=== PATIENT | female | born 1990 | race Caucasian/White ===

== ENCOUNTER → 2020-06-22 10:39 | Outpatient (BNVA) | payer MEDICAID, SELFPAY | PROVIDERS: Visit Provider Nurse Practitioner Women's Health | DX: O99.211 Obesity complicating pregnancy, first trimester (principal); Z3A.11 11 weeks gestation of pregnancy | CPT/HCPCS: 84315; 87077; 87086; 87184 ==

== ENCOUNTER → 2020-07-02 15:11 | Outpatient (BNVA) | payer MEDICAID, SELFPAY | PROVIDERS: Visit Provider Obstetrics & Gynecology | DX: Z34.01 Encounter for supervision of normal first pregnancy, first trimester (principal) | CPT/HCPCS: 80307; 83036; 84315; 85027; 86592; 86762; 86803; 86850; 86900; 87340; 87491; 87591; 87806; 88175 ==

== ENCOUNTER → 2020-07-25 10:15 | Outpatient (BNVA) | payer MEDICAID, SELFPAY | PROVIDERS: Visit Provider Nurse Practitioner Women's Health | DX: O99.891 Other specified diseases and conditions complicating pregnancy (principal); R82.71 Bacteriuria | CPT/HCPCS: 84315; 87086 ==

== ENCOUNTER → 2020-08-22 10:31 | Outpatient (BNVA) | payer MEDICAID, SELFPAY | PROVIDERS: Visit Provider Obstetrics & Gynecology | DX: Z36.89 Encounter for other specified antenatal screening (principal) | CPT/HCPCS: 76805 ==

== ENCOUNTER → 2020-09-17 11:54 | Outpatient (BNVA) | payer MEDICAID, SELFPAY | PROVIDERS: Visit Provider Obstetrics & Gynecology | DX: Z34.80 Encounter for supervision of other normal pregnancy, unspecified trimester | CPT/HCPCS: 82950; 84315 ==

== ENCOUNTER → 2020-10-15 11:49 | Outpatient (BNVA) | payer MEDICAID, SELFPAY | PROVIDERS: Visit Provider Obstetrics & Gynecology | DX: Z34.02 Encounter for supervision of normal first pregnancy, second trimester (principal) | CPT/HCPCS: 84315; 85027 ==

== ENCOUNTER → 2020-12-10 08:54 | Outpatient (BNVA) | payer MEDICAID, SELFPAY | PROVIDERS: Visit Provider Obstetrics & Gynecology | DX: Z34.03 Encounter for supervision of normal first pregnancy, third trimester (principal) | CPT/HCPCS: 84315; 87081 ==

== ENCOUNTER 2020-12-21 10:56 | Outpatient (CLI) | payer MEDICAID, SELFPAY | END 2020-12-21 10:57 | disposition home or self-care (01) | LOC: LAB 01-11 03:43 | PROVIDERS: Visit Provider Obstetrics & Gynecology | DX: Z34.03 Encounter for supervision of normal first pregnancy, third trimester (principal) | CPT/HCPCS: 84315; 87086 ==

== ENCOUNTER 2020-12-24 19:28 | Inpatient (IN) | payer MEDICAID, SELFPAY ==
[2020-12-24] VITALS (21 sets, daily range): BP systolic 119–169; BP diastolic 63–87; PULSE 60–75; RESP 18; TEMP 36.3; BMI 42.8
[2020-12-24 20:03] LABS: Basophils % 0.4 %; Eosinophils # 0.1 10^3/uL (0.0-0.8); Eosinophils % 0.6 %; Hematocrit 35.7 % (37.0-47.0); Hemoglobin 11.8 g/dL (11.5-15.3); Lymphocytes # 1.2 10^3/uL (0.8-4.8); Lymphocytes % 14.8 %; Mean Corpuscular HGB Conc 33.1 g/dL (30.0-36.0); Mean Corpuscular Volume 93.7 fL (81-99); Monocytes # 0.6 10^3/uL (0.2-0.9); Monocytes % 7.1 %; Neutrophils # 6.26 10^3/uL (1.8-7.7); Neutrophils % 76.5 %; Nucleated Red Blood Cells % 0 %; Platelet Count 224 10^3/cmm (130-400); Red Blood Count 3.81 10^6/uL (4.1-5.3); Red Cell Distribution Width 12.9 % (12.1-15.1); White Blood Count 8.2 10^3/uL (4.0-10.0)
[2020-12-24] MEDS: dextrose 5%-sod chloride 0.9% 1,000 ML 999 ML IV (20:07)
[2020-12-24] MEDS: dextrose 5%-lactated ringers 1,000 ML 125 ML IV (20:41)
[2020-12-24] MEDS: oxytocin 30 UNIT/500 ML BAG IV (21:20)
[2020-12-25] VITALS (90 sets, daily range): BP systolic 94–197; BP diastolic 51–110; PULSE 57–90; RESP 16–17; TEMP 36.2–37.2; O2SAT 93–99
[2020-12-25] MEDS: lactated ringers 1,000 ML 999 ML IV ×2 (01:23→12:57)
--- NOTE | 2020-12-25 02:30 | ANES.PREANE2 ---
Pre-Anesthetic Assessment Pre-Anesthetic Assessment: Height/Weight: Height 1.6 m Weight 109.769 kg Temp Pulse Resp BP Pulse Ox 97.3 F L 84 18 145/74 99 12/24/20 20:15 12/25/20 02:46 12/24/20 19:48 12/25/20 02:46 12/25/20 02:46 Preop Diagnosis: IUP Proposed Procedure: labor epidural Was Beta Melania taken within 24 hours: N/A Was Clonidine taken within 24 hours: N/A Social: Social History: No alcohol and No tobacco Exam: Pre-Anes Outpt Exam: alert, oriented x 3, clear to auscultation bilaterally and regular rate & rhythm Airway: Submandibular: WNL Cervical ROM: WNL MP: 2 History/ROS: No significant history except as noted Pulmonary: Pulmonary: Asthma CV/HEM: CV/HEM: None reported : : None reported Hepatic: Hepatic: None reported GI: GI: None reported Metabolic: Metabolic: Morbid obesity Musc/skel: Musc/skel: None reported Neuropsych: Neuropsych: None reported Anesthetic Plan: ASA status: 2 Anesthesia: Anesthesia Evaluation Risk of > 500 ml blood loss (7ml/kg in children): No Meds/Allergies Current Medications: Current Medications Generic Name Dose Route Start Last Admin Trade Name Freq PRN Reason Stop Dose Admin Dextrose/Lactated Ringer's 1,000 mls @ 125 m ls/hr 12/24/20 20:00 12/24/20 20:41 Dextrose 5%-Lact ated Ringers IV 125 mls/hr .Q8H MARIO Administration Oxytocin 30 unit in 500 ml s @ 1 mls/hr 12/24/20 21:15 12/24/20 21:35 Pitocin IV 2 milliunit/min .Q24H MARIO 2 mls/hr Titration Protocol 1 MILLIUNIT/MIN Lactated Ringer's 1,000 mls @ 999 m ls/hr 12/25/20 01:16 12/25/20 01:23 Lactated Ringers IV 999 mls/hr .Q1H1M PRN Administration See label comment s PFSH Anesthesia PFSH: Medical History Asthma No pertinent past medical history neghx: htn,dm,thyroid,dvt/pe,herpes ---denies partner with herpes Surgical History No pertinent past surgical history Family History Denies family history of Colon cancer Ovarian cancer Diabetes Heart disease Breast cancer Hypertension Uterine cancer Thyroid disease Stroke Social History Additional social history: - Tobacco use: Never Alcohol use: Socially prior to Drug use: denies Female Reproductive History: : 1 Data Anesthesia CBC & Chem 7: 12/24/20 14:44 Other Labs: Laboratory Results - last 48 hr 12/24/20 14:44 WBC 8.2 RBC 3.81 L Hgb 11.8 Hct 35.7 L MCV 93.7 MCH 31.0 MCHC 33.1 RDW 12.9 Plt Count 224 MPV 11.0 H Neut % (Auto) 76.5 Lymph % (Auto) 14.8 [place] % (Auto) 7.1 Eos % (Auto) 0.6 Baso % (Auto) 0.4 Neut # (Auto) 6.26 Lymph # (Auto) 1.2 [place] # (Auto) 0.6 Eos # (Auto) 0.1 Baso # (Auto) 0.0 Nucleated RBC % (auto) 0 Nucleated RBCs # 0.0 Cardiac Studies: No Data to Display
--- NOTE | 2020-12-25 02:54 | ANES.PROC ---
Anesthesia Procedures Procedure/Date: 12/25/20 Epidural: Time Out Performed: Yes Consents Signed: Procedure Consent Consent: requested by attending/covering physician Lumbar Level: L3-L4 Epidural position: sitting Epidural procedure: sterile prep of area, 1% lidocaine to numb the area, 18 g needle, negative for paresthesia passed, neg for paresthesia, test dose given, 1.5% xylocaine 1:200k epi (5ml), placed PCEA, no systemic response, sterile dressing applied, L.U.D. no apparent complications and 0.2% Ropiavacaine @ mls/hr (13)
--- NOTE | 2020-12-25 04:55 | ANES.PREANE2 ---
Pre-Anesthetic Assessment Pre-Anesthetic Assessment: Height/Weight: Height 1.6 m Weight 109.769 kg Temp Pulse Resp BP Pulse Ox 97.3 F L 68 18 118/75 96 12/25/20 03:21 12/25/20 04:40 12/24/20 19:48 12/25/20 04:40 12/25/20 03:51 Preop Diagnosis: IUP Proposed Procedure: labor epidural Was Beta Melania taken within 24 hours: N/A Was Clonidine taken within 24 hours: N/A Social: Social History: No alcohol and No tobacco Exam: Pre-Anes Outpt Exam: alert, oriented x 3, clear to auscultation bilaterally and regular rate & rhythm Airway: Submandibular: WNL Cervical ROM: WNL MP: 2 History/ROS: No significant history except as noted Pulmonary: Pulmonary: None reported CV/HEM: CV/HEM: None reported : : None reported Hepatic: Hepatic: None reported GI: GI: None reported Metabolic: Metabolic: None reported Musc/skel: Musc/skel: None reported Neuropsych: Neuropsych: None reported Anesthetic Plan: ASA status: 1 Anesthesia: Anesthesia Evaluation Risk of > 500 ml blood loss (7ml/kg in children): No Meds/Allergies Current Medications: Current Medications Generic Name Dose Route Start Last Admin Trade Name Freq PRN Reason Stop Dose Admin Dextrose/Lactated Ringer's 1,000 mls @ 125 m ls/hr 12/24/20 20:00 12/24/20 20:41 Dextrose 5%-Lact ated Ringers IV 125 mls/hr .Q8H MARIO Administration Oxytocin 30 unit in 500 ml s @ 1 mls/hr 12/24/20 21:15 12/24/20 21:35 Pitocin IV 2 milliunit/min .Q24H MARIO 2 mls/hr Titration Protocol 1 MILLIUNIT/MIN Ropivacaine 200 mg in 100 mls @ 13 mls/hr 12/25/20 01:30 12/25/20 02:48 Naropin Premix EPIDURAL 13 mls/hr .Q7H42M MARIO Administration Lactated Ringer's 1,000 mls @ 999 m ls/hr 12/25/20 01:16 12/25/20 01:23 Lactated Ringers IV 999 mls/hr .Q1H1M PRN Administration See label comment s PFSH Anesthesia PFSH: Medical History Asthma No pertinent past medical history neghx: htn,dm,thyroid,dvt/pe,herpes ---denies partner with herpes Surgical History No pertinent past surgical history Family History Denies family history of Colon cancer Ovarian cancer Diabetes Heart disease Breast cancer Hypertension Uterine cancer Thyroid disease Stroke Social History Additional social history: - Tobacco use: Never Alcohol use: Socially prior to Drug use: denies Female Reproductive History: : 1 Data Anesthesia CBC & Chem 7: 12/24/20 14:44 Other Labs: Laboratory Results - last 48 hr 12/24/20 14:44 WBC 8.2 RBC 3.81 L Hgb 11.8 Hct 35.7 L MCV 93.7 MCH 31.0 MCHC 33.1 RDW 12.9 Plt Count 224 MPV 11.0 H Neut % (Auto) 76.5 Lymph % (Auto) 14.8 [place] % (Auto) 7.1 Eos % (Auto) 0.6 Baso % (Auto) 0.4 Neut # (Auto) 6.26 Lymph # (Auto) 1.2 [place] # (Auto) 0.6 Eos # (Auto) 0.1 Baso # (Auto) 0.0 Nucleated RBC % (auto) 0 Nucleated RBCs # 0.0 Cardiac Studies: No Data to Display
[2020-12-25 05:02] LABS: Urine Creatinine 168 mg/dL (28-217)
[2020-12-25 05:03] LABS: UPRO/UCREAT Ratio 0.17 mg/mg CR; Urine Protein Random 28 mg/dL
[2020-12-25] MEDS: dextrose 5%-lactated ringers 1,000 ML 125 ML IV ×2 (09:39→19:55)
[2020-12-25] MEDS: metoclopramide 5 mg/mL SDV 2 mL 10 MG IVP (12:56)
[2020-12-25] MEDS: citric acid-sodium citrate 30 mL UDC PO (12:57)
[2020-12-25] MEDS: famotidine 20 mg/2 mL INJ IVP (12:57)
--- NOTE | 2020-12-25 13:29 | W.PM.OPSUD ---
Surgery/Procedure H&P Update DATE OF PROCEDURE: December 25, 2020 DATE H&P PERFORMED: 12/21/20 H&P UPDATE INFORMATION: I have reviewed H&P completed within last 30 days, I have examined patient prior to procedure and H&P is in [facility] [place] [facility] EMR on date indicated PREOP DIAGNOSIS: IUP PRIMARY INDICATION FOR PROCEDURE: Arrest of dilation PLANNED PROCEDURE: Operation Date: 12/25/20 14:00 Proposed Procedures p Section(Not Applicable) - Cameron Gates MD
[2020-12-25] MEDS: azithromycin 500 MG in sodium chloride 0.9% 250 ML 250 MG IV (14:07)
--- NOTE | 2020-12-25 15:10 | PM.OP ---
Operative Report Date of procedure: December 25, 2020 OPERATIVE REPORT Date of surgery: 12/25/2020 Date of dictation: 12/25/2020 Preoperative diagnosis: 30-year-old 1 para 0 at 38 weeks and 1 day, arrest of dilation at 6 cm, obesity with a BMI of 42, spontaneous rupture of membranes, asymptomatic bacteriuria. Postoperative diagnosis/findings: Same, normal tubes and ovaries bilaterally, baby girl, cephalic, clear fluid, Apgars 9/10 weighing 7 pounds 7 ounces Procedure done: Primary low transverse delivery via Pfannenstiel incision. Specimens removed/disposition of specimens: Placenta and cord which were discarded Surgeon: Dr. Cameron Chavira workers compensation claims assistant: Aurora Falk Anesthesia: Spinal anesthesia Estimated blood loss: 700 ml Intravenous fluids: 1200 mL of LR Urine output: 200 mL of urine at the end of procedure Medications: As per anesthesia records Complications: None, patient was taken to the recovery room in a stable condition INDICATION FOR SURGERY: Ms. Iniguez is 30-year-old 1 para 0 at 38 weeks and 1 day who presented to labor and delivery on 12/24/2020 with reports of leaking of fluid that began at 6:30 PM on 12/24/2020. On evaluation on labor and delivery she was noted to be grossly ruptured with clear fluid and was 1 cm 50% -3 station, cephalic. tracing was category 1 and she was having irregular contractions every 2 to 6 minutes and she was observed for 2 hours and during this time made no further cervical change and contractions spaced out to every 7 to 11 minutes. tracing continue to be category 1. She was started on Pitocin at 9:30 PM on 12/24/2020 and this was titrated to maximum of 3 mIU and with this she started to have regular contractions every 1 to 2 minutes and was uncomfortable. An epidural was placed without any difficulty and she was comfortable after this. At about 4 AM she was noted to be 4 cm and at 5:30 AM 5 cm. She made very minimal cervical change after this progressing from 5 to 6 cm at about 8 AM and then made no further cervical change. When she was reassessed at 1 PM cervix had made no further cervical change despite regular contractions and there was starting to be more caput and the cervix was getting more puffy and decision was made to proceed with delivery. Patient agreed with this decision and after counseling about risks benefits and alternatives consents were signed. Since Covid testing results were not back she was taken to the main OR for surgery. PROCEDURE: After consent was obtained, patient was taken to the operating room where epidural anesthesia was not working very well and so spinal anesthesia was placed without difficulty. She was placed supine on the table with a left lateral wedge. Gentile catheter and SCDs were placed. The abdomen was shaved and then prepped with duo prep. She was draped in a sterile fashion. After checking adequacy of anesthesia, a Pfannenstiel incision was made 2 cm above the pubic symphysis. The incision was carried down to the fascia using the Bovie. The fascia was nicked in the midline and the fascial incision was extended laterally using curved Mayos. The inferior aspect of the fascia was grasped with nitza clamps and dissected off from the underlying rectus muscle. This was repeated again superiorly without any difficulty. The rectus muscle was . A yonas was made in the peritoneum and the peritoneal incision was carried inferiorly taking care to proceed in layers so as to avoid the bladder. The peritoneal incision was extended superiorly as well. No adhesions were noted from the uterus to the anterior abdominal wall. The uterus was noted to be rotated to the left. The bladder peritoneum was grasped with smooth forceps a bladder flap was created. the bladder blade was replaced thus protecting the bladder. A LOW TRANSVERSE UTERINE INCISION was made with a scalpel till the amniotic membrane was reached. The uterine incision was then extended laterally using bandage scissors. Amniotomy was done with Allis clamps and clear amniotic fluid was drained. The head of the baby was brought up to the level of the incision and delivered with fundal pressure. The remainder of body followed without any difficulty. The nose and mouth were suctioned, the umbilical cord was clamped and cut and the baby was handed off to the waiting mine safety engineer, Dr. Bejarano. The placenta was delivered spontaneously with fundal massage. It was noted to be intact and was discarded. The interior of the uterus was cleaned of all clot and debris and was noted to be juliet well. The uterus was exteriorized. The uterine incision was inspected and there were bilateral inferior extensions measuring about 2 cm on the right and left side. These were first repaired with 0 Vicryl in continuous interlocking fashion and good hemostasis was achieved. The uterine incision was closed with 0 Vicryl in a running interlocking manner. Good hemostasis and reapproximation was obtained. [id number] sutures were placed to better reapproximation and hemostasis. The abdomen was irrigated and the gutters were cleaned of clot and debris. Normal tubes and ovaries were noted bilaterally. The uterus was placed back into the abdomen and uterine incision was noted to be hemostatic. The peritoneum was closed with a 2-0 plain in a continuous stitch. The rectus muscle was reapproximated with 2-0 plain suture in a mattress stitch. Good hemostasis was noted in the rectus muscle layer. The fascia was inspected for any defects and none were found and the fascia was closed with 0 Vicryl in continuous stitch. The subcutaneous plane was then irrigated and hemostasis was obtained using the Bovie. The subcutaneous plane was then reapproximated using 2-0 plain suture in a continuous manner. The skin was then closed with 4-0 Monocryl in a subcuticular fashion. Good reapproximation and hemostasis was noted. Steri-Strips were applied. The incision was dressed with Telfa ,ABD and paper tape. The fundus was noted to be firm at the end of the procedure and excess blood was expressed from the vagina. The patient was left to recover in a stable condition. This documentation was created by [employer] wet process assistant head miller software (known for inherent wet process assistant head miller error). Every effort was made to assure accuracy of wet process assistant head miller. Any obvious errors or omissions should be clarified with the author of the document. Pre-op Diagnosis: IUP
--- NOTE | 2020-12-25 21:17 | ANE.PACU2 ---
Inpatient post-anesthesia follow up: Airway intact: Yes Vital signs: Temperature 98.8 F Pulse Rate 80 Respiratory Rate 16 Blood Pressure 130/70 Pulse Oximetry 96 Oxygen Delivery Me thod Room Air Oxygen Flow Rate Fraction of Inspir ed Oxygen Hydration adequate: Yes Nausea and vomiting: No Pain level: 2 Mental status: Baseline
[2020-12-25] MEDS: HYDROcodone-acetaminophen 5-325 mg Tablet PO (21:44)
[2020-12-26 01:07] VITALS: BP 139/79; PULSE 72; RESP 16
[2020-12-26 02:40] LABS: Hematocrit 28.5 % (37.0-47.0); Hemoglobin 9.3 g/dL (11.5-15.3); Mean Corpuscular HGB Conc 32.6 g/dL (30.0-36.0); Mean Platelet Volume 10.5 fL (7.4-10.4); Platelet Count 182 10^3/cmm (130-400); Red Cell Distribution Width 13.4 % (12.1-15.1); White Blood Count 12.1 10^3/uL (4.0-10.0)
[2020-12-26] MEDS: heparin 5,000 unit/mL INJ 1 mL 5000 UNIT SUBCUT ×3 (04:17→21:59)
[2020-12-26 04:49] VITALS: BP 126/79; RESP 16; TEMP 36.8
[2020-12-26] MEDS: HYDROcodone-acetaminophen 5-325 mg Tablet PO ×4 (07:22→22:54)
[2020-12-26] MEDS: ferrous sulfate EC 325 mg Tablet PO ×2 (07:22→17:43)
[2020-12-26] MEDS: prenatal vitamin Capsule 1 CAP PO (07:22)
--- NOTE | 2020-12-26 07:25 | P.PN_ITS ---
Subjective Subjective: Interval history: SUBJECTIVE: Ms. Murphy is doing well today. She states that her pain is overall pretty well controlled with pills. She denies heavy vaginal bleeding, fever, chills, shortness of breath and chest pain. She is just working on trying to get her daughter to latch. She denies shortness of breath chest pain and is doing okay with the heparin. She does feel her bowels growl but has not yet passed flatus. She feels better with the catheter out. She has been out of bed into chair OBJECTIVE/PHYSICAL EXAM: Gen.: No acute distress Heart: S1-S2 heard, regular rate and rhythm Lungs: Clear to auscultation bilaterally Abdomen: Soft, fundus firm below umbilicus, tenderness around incision. Incision: Dressing in place Legs: No calf tenderness, +1 pitting pedal edema. ASSESSMENT AND PLAN: 30-year-old 1 para 1-0-0-1 status post primary delivery for arrest of dilation, postoperative day #1 -Continue routine postoperative care-p.o. pain medication as needed -Encourage ambulation-SCDs on while in bed and continue heparin subcutaneously f or DVT prophylaxis -Hemoglobin stable, vital signs stable -Continue incentive spirometer use -We will advance to full liquid diet and wait until she passes gas to advance diet to regular -Once she tolerates regular we will plan on discontinuing IV -Gentile catheter has been discontinued at 5:30 AM as urine output was adequate -Abdominal binder -Anticipate that patient will need to stay 1-2 more midnights to recover from surgery Vitals/I&O/Wt Last Vital Signs Temp 98.2 F 12/26/20 04:49 Pulse 72 12/26/20 01:07 Resp 16 12/26/20 04:49 BP 126/79 12/26/20 04:49 Pulse Ox 96 12/25/20 20:05 12/25/20 12/26/20 12/26/20 22:59 06:59 14:59 Intake Total 200 / 530.067 Output Total 1700 / 1900 220 / 2120 Balance -1500 / -1369.933 -220 / -1589.933 Weight last 48 hrs Weight 242 lb Physical Exam Urinary Catheter Management^: Gentile Latex: Cath Placed During This Visit: yes Reason for Continuing Indwelling Catheter: Other Urinary Catheter Date of Insertion: 12/25/20 Urinary Catheter Time of Insertion: 03:15 Data : 12/26/20 02:35 Attestations Medical Necessity Statement*: Patient will need to stay 1 or 2 midnights recover from surgery Coding Level of Care Code Acute Motorboat Mechanic for Brayan Ward
[2020-12-26] MEDS: docusate sodium 100 mg Capsule PO ×2 (09:12→17:43)
[2020-12-26] MEDS: ibuprofen 800 mg tablet PO ×3 (09:12→21:59)
[2020-12-26 09:15] VITALS: BP 128/76; PULSE 74; RESP 16; TEMP 36.4
[2020-12-26 09:35] VITALS: PULSE 73; RESP 18; O2SAT 97
[2020-12-26 15:40] VITALS: BP 139/83; PULSE 69; RESP 16; TEMP 36.4
[2020-12-26 22:00] VITALS: BP 116/75; PULSE 73; RESP 16; TEMP 36.4; O2SAT 97
[2020-12-27] MEDS: HYDROcodone-acetaminophen 5-325 mg Tablet PO ×2 (03:05→12:48)
[2020-12-27 04:00] VITALS: BP 127/82; PULSE 60; TEMP 36.5; O2SAT 98
[2020-12-27] MEDS: heparin 5,000 unit/mL INJ 1 mL 5000 UNIT SUBCUT (05:07)
--- NOTE | 2020-12-27 07:43 | P.DS_ITS ---
Discharge Providers Date of Admission: 12/24/20 19:28 Date of Discharge: December 27, 2020 Attending Provider at Admission: Cameron Gates MD Attending Provider at Discharge: Date of surgery: 12/25/2020 Preoperative diagnosis: 30-year-old 1 para 0 at 38 weeks and 1 day, arrest of dilation at 6 cm, obesity with a BMI of 42, spontaneous rupture of membranes, asymptomatic bacteriuria. Postoperative diagnosis/findings: Same, normal tubes and ovaries bilaterally, baby girl, cephalic, clear fluid, Apgars 9/10 weighing 7 pounds 7 ounces Procedure done: Primary low transverse delivery via Pfannenstiel incision. Specimens removed/disposition of specimens: Placenta and cord which were discarded Surgeon: Dr. Cameron Chavira housekeeping assistant: Aurora Falk Anesthesia: Spinal anesthesia Complications: None, patient was taken to the recovery room in a stable condition INDICATION FOR SURGERY: Ms. Iniguez is 30-year-old 1 para 0 at 38 weeks and 1 day who presented to labor and delivery on 12/24/2020 with reports of leaking of fluid that began at 6:30 PM on 12/24/2020. On evaluation on labor and delivery she was noted to be grossly ruptured with clear fluid and was 1 cm 50% -3 station, cephalic. tracing was category 1 and she was having irregular contractions every 2 to 6 minutes and she was observed for 2 hours and during this time made no further cervical change and contractions spaced out to every 7 to 11 minutes. tracing continue to be category 1. She was started on Pitocin at 9:30 PM on 12/24/2020 and this was titrated to maximum of 3 mIU and with this she started to have regular contractions every 1 to 2 minutes and was uncomfortable. An epidural was placed without any difficulty and she was comfortable after this. At about 4 AM she was noted to be 4 cm and at 5:30 AM 5 cm. She made very minimal cervical change after this progressing from 5 to 6 cm at about 8 AM and then made no further cervical change. When she was reassessed at 1 PM cervix had made no further cervical change despite regular contractions and there was starting to be more caput and the cervix was getting more puffy and decision was made to proceed with delivery. Patient agreed with this decision and after counseling about risks benefits and alternatives consents were signed. Since Covid testing results were not back she was taken to the main OR for surgery. HOSPITAL COURSE: She underwent an uncomplicated primary low transverse delivery on 2020 she did well on day 0 and was ambulating well, tolerating clear liquid diet with catheter in place.She was given heparin subcutaneously and SCDs for DVT prophylaxis. She was breast-feeding without difficulty and bonding well with her daughter. Pain was well-controlled with by mouth pain medication. She denied nausea, vomiting, fever, chills, shortness of breath, leg pain. She had moderate vaginal bleeding. On day # 1 she continued to do well with stable vital signs and stable hemoglobin at 9.3. She passed flatus tolerated regular diet and was ambulating well. Incision appeared clean dry and intact. She continued to do well on postoperative day #2 without any other problems.. She was discharged home on day 2 in a stable condition, as she desired early discharge. Warning signs for endometritis, wound infection, mastitis, DVT/PE were reviewed with her. Post delivery activity restrictions were also reviewed with her at all her questions were answered to her satisfaction. She will discuss contraception with Dr. Adame at her visit. EXAM AT DISCHARGE: Gen.: No acute distress Heart: S1-S2 heard, regular rate and rhythm Lungs: Clear to auscultation bilaterally Abdomen: Soft, fundus firm below umbilicus, tenderness around incision. Incision: Clean dry and intact with Steri-Strips. Legs: No calf tenderness, 2+ bilateral pitting pedal edema. CONDITION AT DISCHARGE: Stable This documentation was created by [employer] manufacturing engineer automotive software (known for inherent manufacturing engineer automotive error). Every effort was made to assure accuracy of manufacturing engineer automotive. Any obvious errors or omissions should be clarified with the author of the document. Reason for Visit Reason for Visit: Possible SROM Physical Exam Urinary Catheter Management^: Gentile Latex: Cath Placed During This Visit: yes Reason for Continuing Indwelling Catheter: Other Urinary Catheter Date of Insertion: 12/25/20 Urinary Catheter Time of Insertion: 03:15 Discharge Data Vitals: Last Vital Signs Temp 97.7 F 12/27/20 04:00 Pulse 60 12/27/20 04:00 Resp 16 12/26/20 22:00 BP 127/82 12/27/20 04:00 Pulse Ox 98 12/27/20 04:00 Discharge Plan Discharge Patient Disposition: Home Condition: Stable Prescriptions: New hydrocodone-acetaminophen 5-325 mg tablet 1 tab PO Q6H Qty: 25 RF: 0 docusate sodium 100 mg Capsule 100 mg PO BID PRN (Reason: constipation) Qty: 30 RF: 0 ibuprofen 800 mg tablet 800 mg PO Q8H Qty: 30 RF: 0 Continued prenat.vits,robert,[id number] Tablet 1 tab PO DAILY RF: 0 Discharge Orders: Discharge Order (Routine); Ordered 12/27/20 Ordered By: Cameron Gates Referrals: Cameron Gates MD [Physician] - Discharge Diet: Usual diet Patient Instructions: Vitamins (By mouth), Pre-eclampsia and Eclampsia (DC), Bleeding (DC), OB [facility], OB Discharge Report, OB Food/Drug Interaction Guide, Opioid Safety, OB Proud Parent Packet Activity Restrictions/Additional Instructions: Pelvic rest for 6 weeks, no heavy lifting for 6 weeks 2-week incision check and 6-week visit with Dr. Adame. Discharge Attestations Time Spent in Discharge Care*: greater than 30 min Quality Metrics Clinical Quality Measures During this hospital stay, did patient experience: None Coding Level of Care Code Acute Chg FW DC note
[2020-12-27 09:40] VITALS: BP 146/79; PULSE 75; RESP 16; TEMP 36.4
[2020-12-27] MEDS: prenatal vitamin Capsule 1 CAP PO (09:57)
[2020-12-27] MEDS: docusate sodium 100 mg Capsule PO (09:57)
[2020-12-27] MEDS: ferrous sulfate EC 325 mg Tablet PO (09:57)
[2020-12-27] MEDS: ibuprofen 800 mg tablet PO (09:58)
[2020-12-27 12:20] VITALS: BP 146/89; PULSE 71; RESP 17; TEMP 36.6
== END 2020-12-27 12:55 | disposition home or self-care (01) | DRG 788 ==
LOC: OBGYN 12-26 19:35 → OPOB 12-27 03:08 → OBGYN 12-27 03:15
PROVIDERS: Admitting Provider Obstetrics & Gynecology; Visit Provider Obstetrics & Gynecology
PROC: 10D00Z1 Extraction of Products of Conception, Low, Open Approach (ICD-10-PCS; CPT 59514; principal; 2020-12-25 14:00)
DX: O62.1 Secondary uterine inertia (principal); O99.214 Obesity complicating childbirth; Z3A.38 38 weeks gestation of pregnancy; Z37.0 Single live birth; R82.71 Bacteriuria; O75.89 Other specified complications of labor and delivery
CPT/HCPCS: 36415; 51702; 59025; 59409; 82570; 83986; 84156; 85025; 85027; 96372; 96374; 96375; 98960; 99211; J0456; J0690; J1644; J2274; J2405; J2765; J2795; J3490; J7050

== ENCOUNTER → 2021-07-07 13:08 | Outpatient (BNVA) | payer MEDICAID, SELFPAY | PROVIDERS: Visit Provider Nurse Practitioner | DX: R39.9 Unspecified symptoms and signs involving the genitourinary system (principal); N39.0 Urinary tract infection, site not specified | CPT/HCPCS: 81000 ==

== ENCOUNTER → 2022-11-13 08:06 | Outpatient (BNVA) | payer MEDICAID, SELFPAY | PROVIDERS: Visit Provider Obstetrics & Gynecology | DX: Z32.00 Encounter for pregnancy test, result unknown (principal) | CPT/HCPCS: 81025 ==

== ENCOUNTER → 2022-11-27 08:12 | Outpatient (BNVA) | payer MEDICAID, SELFPAY | PROVIDERS: Visit Provider Nurse Practitioner Women's Health | DX: Z34.90 Encounter for supervision of normal pregnancy, unspecified, unspecified trimester (principal); Z78.9 Other specified health status; N94.10 Unspecified dyspareunia | CPT/HCPCS: 84315; 84702; 87077; 87086; 87184 ==

== ENCOUNTER 2022-12-11 14:11 | Emergency (ER) | payer MEDICAID, SELFPAY ==
[2022-12-11 14:21] VITALS: RESP 16; TEMP 36.7
--- NOTE | 2022-12-11 14:46 | US_ITS ---
WS: [id number] US pelvic complete* [id number] HISTORY: vaginal bleeding COMPARISON: None available. Patient approximately 12 weeks . No prior studies for comparison. Uterus is enlarged and anteverted. Transabdominal imaging demonstrates heterogeneous thickened conten t within the endometrial canal. There is mobile complex fluid moving through the endocervical and vag inal canals during the examination. No pole or cardiac activity. At the end of the examination the amount of fluid and debris has decreased. Both ovaries are identified and normal size. LEFT ovary measures 2.3 x 1.9 x 2.5 cm. RIGHT ovary shandra ures 1.8 x 1.9 x 2.2 cm. Tiny amount of free fluid in the cul-de-sac. US/US pelvic complete* [id number] IMPRESSION: 1. Ongoing spontaneous . No intrauterine gestation or cardiac activity is identified. 2. Mobile debris was passing through the cervical and vaginal canals during th e examination.
--- NOTE | 2022-12-11 14:47 | W.ED.PREGNAN ---
HPI - General: Chief complaint: Vaginal Bleeding Stated complaint: vag bleeding 11 weeks preg Time Seen by Provider: 12/11/22 14:35 Source: patient Mode of arrival: ambulatory Limitations: no limitations History of Present Illness: Comes to our emergency department because of concerns about vaginal bleeding. 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 She states that earlier today she went to the bathroom and noted heavier bleeding with bright red blood and also associated cramps which are similar to menstrual cramps. She denies any fevers or chills lightheadedness abdominal pains etc. She is a G2 para 1 having delivered a live via approximately 2 years ago without other complications. She currently takes no medications other than vitamins and has no other significant past medical history and has no other significant current symptoms. She states she is blood type A Rh+ MD Complaint: vaginal bleeding Quality: Cramping OB History - Previous Pregnancies: other (Failure to progress during active labor with resultant low transverse .) Associated symptoms: Deny dysuria, headache(s), nausea, syncope or vomiting Related Data: : 2 Para: 1 Total number of abortions (spontaneous and elective): 0 Review of Systems Const: Denies: fever(s) or chills Card: Denies: syncope or pre-syncope Resp: Denies: dyspnea, productive cough or non-productive cough GI: Denies: nausea, vomiting or diarrhea : Reports: vaginal bleeding; Denies: difficulty voiding, dysuria or urinary frequency Musc: Denies: back pain, extremity pain or extremity swelling Skin/Breast: Denies: rash Neuro: Denies: headache(s), numbness in extremities or weakness in extremities Endo: Denies: polyuria Diego/Lymph: Denies: easy bruising or easy bleeding PFSH ED PFSH: Medical History Asthma has not had an attack since high school No pertinent past medical history neghx: htn,dm,thyroid,dvt/pe,herpes PCP: none Surgical History Status post delivery 12/25/2020----> primary low transverse delivery for arrest of dilation performed by Dr. Chavira at [facility] [place]. Low transverse uterine incision with double layer closure-bilateral right and left inferior extensions measuring about 1 cm. Prominent sacral premonitory. Family History Mother Heart disease has pace maker Sister Hypertension Denies family history of Colon cancer Ovarian cancer Diabetes Hyperlipidemia Breast cancer Uterine cancer Thyroid disease Stroke Female Reproductive History: : 2 Physical Exam Narrative: EXAM NARRATIVE: Slightly anxious and tearful but makes good eye contact and answers questions appropriately. Const: COMMON NORMALS: no acute distress and patient oriented x3 GENERAL APPEARANCE: cooperative NUTRITIONAL APPEARANCE: overweight HENMT: COMMON NORMALS: normocephalic and Normal nasal mucous membranes and turbinates present HEAD & SCALP: normocephalic NOSE: Normal nasal mucous membranes and turbinates present Eye: COMMON NORMALS: Equal, round and reactive pupils present and conjunctivae normal CONJUNCTIVA: Yes conjunctivae normal PUPIL: Yes Equal, round and reactive pupils present Neck/C-Spine: COMMON NORMALS: full ROM Resp: COMMON NORMALS: normal respiratory effort EFFORT & INSPECTION: Yes able to speak in complete sentences Cardio: COMMON NORMALS: regular rate and Peripheral pulses 2+ throughout RATE: regular rate PERIPHERAL PULSES: Peripheral pulses 2+ throughout GI: COMMON NORMALS: Normal to inspection, nondistended, normoactive bowel sounds present, Soft to palpation, non-tender and No hepatosplenomegaly present PALPATION: Yes Soft to palpation and Yes No hepatosplenomegaly present : COMMON NORMALS: Yes no CVA tenderness BLADDER/KIDNEY EXAM: Yes no CVA tenderness Back/Pelvis: COMMON NORMALS: no CVA tenderness, thoracic and lumbar spine normal to inspection, no thoracic nor lumbar tenderness and thoraco-lumbar ROM normal Extremity: COMMON NORMALS: normal to inspection, full ROM, capillary refill normal, no calf tenderness and no pedal edema Neuro: COMMON NORMALS: patient oriented x3, moves all extremities and no focal motor deficits CRANIAL NERVES: Yes CN normal except as noted Skin: COMMON NORMALS: no rashes or lesions noted and turgor normal GENERAL SKIN EXAM: no rashes or lesions noted and turgor normal Course Reevaluation(s): Reevaluation #1: I informed patient of ultrasound results. Patient's currently clinically stable. Obviously emotionally upset over the news. Discussed expected course and return precautions as well as OB follow-up for repeat hCG. Time: 16:39 Reevaluation #2: At the time of discharge patient reported that she was having heavier bleeding. She states that she had not been having much in the way of significant bleeding other than some spotting earlier but it had significantly increased after her ultrasound. Patient was placed in a pelvic exam bed and evaluated. Speculum examination was performed and several small clots were removed from the os and the vault. She was observed for approximately 5 minutes with speculum in situ. Os was closed and there was minimal if any bleeding during the period of observation. Likely the patient's bleeding issues were precipitated by a large clot that spontaneously was expelled and several small clots that I removed. I would anticipate that she would have uterine cramping but certainly no evidence at this time of any significant bleeding etc. Time: 18:27 Reevaluation #3: The patient was reevaluated. She was improved and had no significant bleeding noted at this time. We discussed expected course and reasons to return in detail. She acknowledged our discussion was stable at this time to be discharged. Time: 19:16 Consultations: Consultation #1: Discussed with OB on-call who will provide follow-up. Time: 16:31 Vital Signs: Vital signs: Vital Signs Temperature 98.3 F 12/11/22 17:02 Pulse Rate 55 L 12/11/22 19:07 Respiratory Rate 16 12/11/22 19:07 Blood Pressure 111/76 12/11/22 19:07 Pulse Oximetry 98 12/11/22 19:07 Oxygen Delivery Me thod Room Air 12/11/22 17:02 MDM - OB/Uterine Contractions Medical Decision Making Patient with an LMP of 3-23 presented to the emergency department because of vaginal spotting which began the day prior to arrival and has worsened with associated cramps like menstrual cramps on the day of arrival. She is a G2 para 1 A0. She was not having any symptoms of lightheadedness or other constitutional complaints. Clinical examination revealed vital signs to be stable. Abdominal examination revealed no evidence of peritoneal signs. No significant tenderness. Beta-hCG was obtained, pelvic ultrasound was also obtained. hCG was in the 2210 range unfortunately her pelvic ultrasound revealed a miscarriage in process. It was no evidence of free fluid extrauterine or ovarian masses etc. that would make us concerned about a possible concomitant or heterotopic . She is blood type a Rh+ therefore RhoGAM unnecessary. Discussed with OB on-call. She will be followed up in the clinic for additional care and testing as necessary. We also discussed return precautions in detail with her. Lab Data I reviewed the patient's lab results. Radiology Impressions Pelvis Ultrasound 12/11/22 14:46 IMPRESSION: 1. Ongoing spontaneous . No intrauterine gestation or cardiac activity is identified. 2. Mobile debris was passing through the cervical and vaginal canals during the examination. Laboratory Results Ser , Semi-Qnt 2210.00 mIU/mL 12/11/22 15:00 Discharge Plan Discharge Patient Disposition: Home Clinical Impression: Spontaneous miscarriage Condition: Stable Prescriptions: No Action prenat.vits,robert,wni-adba-voovn Tablet 1 tab PO DAILY Discharge Orders: Discharge ED (Routine); Ordered 12/11/22 Ordered By: Jose Washburn Discharge Diet: Usual diet Discharge Activity: Increase activity as tolerated Patient Instructions: Miscarriage (ED), Opioid Safety, Pain Management Activity Restrictions/Additional Instructions: As we discussed while you are in the emergency department your has not continued to develop as we would expect and you are having a miscarriage. You should expect to have some cramping and bleeding over the next 24 to 48 hours. If you develop significant increase in pain, bleeding, fevers, any other concerning symptoms return to the emergency department immediately for reevaluation. Otherwise you should call the OB clinic tomorrow to arrange an appointment for follow-up in approximately 10 to 14 days. Coding Level of Care Code ED Ingot Header for Brayan Ward
[2022-12-11 17:02] VITALS: BP 116/84; PULSE 74; RESP 18; TEMP 36.8; O2SAT 98
[2022-12-11] MEDS: naproxen 500 mg Tablet PO (17:18)
--- NOTE | 2022-12-11 17:53 | PC.NURSE ---
Pt concerned about amount of bleeding - Washburn to do plevic exam.
[2022-12-11] MEDS: ketorolac 30 mg/mL INJ 15 MG IM (18:42)
[2022-12-11 19:07] VITALS: BP 111/76; PULSE 55; RESP 16; O2SAT 98
--- NOTE | 2022-12-18 15:28 | DCPLANNER ---
TCM called patient due to no primary care physician - patient sees Jackie Wharton
== END 2022-12-11 19:08 | disposition home or self-care (01) ==
PROVIDERS: Emergency Provider Emergency Medicine; PCP Nurse Practitioner
DX: O03.9 Complete or unspecified spontaneous abortion without complication (principal)
CPT/HCPCS: 36415; 76856; 84702; 96372; 99284; J1885

== ENCOUNTER → 2022-12-16 14:43 | Outpatient (BNVA) | payer MEDICAID, SELFPAY | PROVIDERS: Visit Provider Obstetrics & Gynecology | DX: O73.1 Retained portions of placenta and membranes, without hemorrhage (principal) | CPT/HCPCS: 76817; 84702 ==

== ENCOUNTER → 2023-02-04 16:23 | Outpatient (BNVA) | payer MEDICAID, SELFPAY | PROVIDERS: Visit Provider Emergency Medicine | DX: R39.9 Unspecified symptoms and signs involving the genitourinary system (principal) | CPT/HCPCS: 81000 ==

== ENCOUNTER → 2023-06-25 13:04 | Outpatient (BNVA) | payer MEDICAID, SELFPAY | PROVIDERS: Visit Provider Nurse Practitioner Women's Health | DX: Z32.00 Encounter for pregnancy test, result unknown (principal) | CPT/HCPCS: 81025 ==

== ENCOUNTER → 2023-07-02 10:05 | Outpatient (BNVA) | payer MEDICAID, SELFPAY | PROVIDERS: Visit Provider Nurse Practitioner Women's Health | DX: N92.6 Irregular menstruation, unspecified (principal) | CPT/HCPCS: 76817; 84702 ==

== ENCOUNTER → 2023-07-06 11:45 | Outpatient (BNVA) | payer MEDICAID, SELFPAY | PROVIDERS: Visit Provider Obstetrics & Gynecology | DX: Z34.90 Encounter for supervision of normal pregnancy, unspecified, unspecified trimester (principal) | CPT/HCPCS: 84702 ==

== ENCOUNTER → 2023-07-07 08:09 | Outpatient (BNVA) | payer MEDICAID, SELFPAY | PROVIDERS: Visit Provider Nurse Practitioner Women's Health | DX: Z34.90 Encounter for supervision of normal pregnancy, unspecified, unspecified trimester (principal); O20.0 Threatened abortion | CPT/HCPCS: 84315; 85025 ==

== ENCOUNTER → 2023-07-14 08:34 | Outpatient (BNVA) | payer MEDICAID, SELFPAY | PROVIDERS: Visit Provider Nurse Practitioner Women's Health | DX: Z34.90 Encounter for supervision of normal pregnancy, unspecified, unspecified trimester (principal) | CPT/HCPCS: 76817; 84702 ==

== ENCOUNTER 2023-07-29 15:22 | Outpatient (CLI) | payer MEDICAID, SELFPAY ==
[2023-07-29 17:24] LABS: HCG Quantitative 25.93 mIU/mL
== END 2023-07-29 15:23 | disposition home or self-care (01) ==
LOC: LAB 15:23
PROVIDERS: Visit Provider Nurse Practitioner Women's Health
DX: Z34.90 Encounter for supervision of normal pregnancy, unspecified, unspecified trimester (principal)
CPT/HCPCS: 36415; 84702

== ENCOUNTER 2023-08-21 16:37 | Outpatient (CLI) | payer MEDICAID, SELFPAY | END 2023-08-21 16:38 | disposition home or self-care (01) | LOC: LAB 16:39 | PROVIDERS: Visit Provider Obstetrics & Gynecology | DX: O03.9 Complete or unspecified spontaneous abortion without complication (principal) | CPT/HCPCS: 36415; 84702 ==

== ENCOUNTER → 2023-11-19 11:03 | Outpatient (BNVA) | payer MEDICAID, SELFPAY | PROVIDERS: Visit Provider Nurse Practitioner Women's Health | DX: Z34.90 Encounter for supervision of normal pregnancy, unspecified, unspecified trimester (principal) | CPT/HCPCS: 76801; 80307; 84315; 87086 ==

== ENCOUNTER 2023-12-01 16:18 | Outpatient (CLI) | payer MEDICAID, SELFPAY ==
[2023-12-01 17:13] LABS: Basophils % 0.1 %; Eosinophils % 0.3 %; Hematocrit 38.6 % (36-47); Lymphocytes # 1.4 10^3/uL (0.8-4.8); Lymphocytes % 13.9 %; Mean Corpuscular HGB Conc 33.9 g/dL (30-55); Mean Corpuscular Hemoglobin 31.1 pg (27-33); Mean Corpuscular Volume 91.7 fl (85-98); Monocytes # 0.5 10^3/uL (0.2-0.9); Monocytes % 5.4 %; Neutrophils # 8.01 10^3/uL (1.8-7.7); Nucleated Red Blood Cells % 0 %; Platelet Count 273 10^3/cmm (157-399); Red Blood Count 4.21 10^6/uL (3.85-5.65); Red Cell Distribution Width 12.1 % (12.1-15.1); White Blood Count 10.01 10^3/uL (3.29-11.43)
[2023-12-01 18:27] LABS: HIV 1 & 2 Antibody Non-Reactive (Non-Reactiv); HIV 1 & 2 Antigen Non-Reactive (Non-Reactiv)
[2023-12-01 21:04] LABS: Hepatitis B Surface Antigen Non-Reactive (Nonreactive); Hepatitis C Virus Antibody Non-Reactive (Nonreactive); Rapid Plasma Reagin Syphilis Nonreactive (Nonreactive); Rubella IgG 17.5 IU/mL (0.0-10.0); Thyroid Stimulating Hormone 0.25 uIU/mL (0.27-4.20)
[2023-12-01 21:18] LABS: Estmated Average Glucose 85; Hemoglobin A1C 4.6 % (4.0-6.0)
== END 2023-12-01 16:19 | disposition home or self-care (01) ==
LOC: LAB 16:20
PROVIDERS: Visit Provider Nurse Practitioner Women's Health
DX: O99.810 Abnormal glucose complicating pregnancy (principal)
CPT/HCPCS: 36415; 83036; 84443; 85025; 86592; 86762; 86803; 86850; 86900; 87340; 87806

== ENCOUNTER → 2024-02-25 14:00 | Outpatient (BNVA) | payer MEDICAID, SELFPAY | PROVIDERS: Visit Provider Nurse Practitioner Women's Health | DX: O09.899 Supervision of other high risk pregnancies, unspecified trimester (principal) | CPT/HCPCS: 82950; 84315; 84443 ==

== ENCOUNTER → 2024-04-07 08:23 | Outpatient (BNVA) | payer MEDICAID, SELFPAY | PROVIDERS: Visit Provider Obstetrics & Gynecology | DX: O09.899 Supervision of other high risk pregnancies, unspecified trimester (principal) | CPT/HCPCS: 84315; 85025 ==

== ENCOUNTER → 2024-05-19 08:03 | Outpatient (BNVA) | payer MEDICAID, SELFPAY | PROVIDERS: Visit Provider Nurse Practitioner Women's Health | DX: O09.899 Supervision of other high risk pregnancies, unspecified trimester (principal) | CPT/HCPCS: 84315; 87081 ==

== ENCOUNTER 2024-05-27 04:18 | Outpatient (CLI) | payer MEDICAID, SELFPAY ==
[2024-05-27] VITALS (27 sets, daily range): BP systolic 128–166; BP diastolic 69–92; PULSE 57–70; RESP 20; TEMP 35.4; O2SAT 99; BMI 44.6
[2024-05-27 07:44] LABS: Add Urine Microscopic? NO
[2024-05-27 08:14] LABS: UPRO/UCREAT Ratio 0.11 mg/mg CR; Urine Creatinine 62 mg/dL (28-217); Urine Protein Random 7 mg/dL
[2024-05-27 08:24] LABS: Basophils % 0.5 %; Eosinophils # 0.1 10^3/uL (0.0-0.8); Hematocrit 37.8 % (36-47); Lymphocytes # 1.2 10^3/uL (0.8-4.8); Lymphocytes % 13.1 %; Mean Corpuscular HGB Conc 31.7 g/dL (30-55); Mean Corpuscular Hemoglobin 30.6 pg (27-33); Mean Corpuscular Volume 96.4 fl (85-98); Mean Platelet Volume 10.2 fL (7.4-10.4); Monocytes # 0.6 10^3/uL (0.2-0.9); Monocytes % 6.7 %; Neutrophils # 6.85 10^3/uL (1.8-7.7); Neutrophils % 77.8 %; Nucleated Red Blood Cells % 0 %; Platelet Count 236 10^3/cmm (157-399); Red Blood Count 3.92 10^6/uL (3.85-5.65)
[2024-05-27 08:48] LABS: Alanine Aminotransferase 18 U/L (0-33); Albumin Level 3.3 g/dL (3.5-5.2); Alkaline Phosphatase 122 U/L (35-105); Anion Gap 16.7 (5-19); Aspartate Amino Transferase 16 U/L (0-32); Blood Urea Nitrogen 7 mg/dL (6-20); Calcium 8.6 mg/dL (8.5-10.5); Carbon Dioxide 21 mmol/L (22-29); Chloride 99 mmol/L (98-107); Creatinine Clr Calc Pharmacy 193.1193; Globulin 2.3 g/dL (1.3-4.6); Glomerular Filtration Rate 141.2 mL/min (90-130); Glucose 84 mg/dL (65-115); Osmolality Calculated 273 mOsm/kg (285-295); Potassium 3.7 mmol/L (3.5-5.1); Sodium 133 mmol/L (136-145); Total Bilirubin 0.2 mg/dL (0.15-1.2); Total Protein 5.6 g/dL (6.6-8.7); Uric Acid 4.5 mg/dL (2.4-5.7)
[2024-05-27 09:13] LABS: Urine Appearance Cloudy (CLEAR); Urine Color Yellow (Yellow); pH Urine 7 (5-7)
[2024-05-27 09:14] LABS: Bilirubin Urine Neg (Negative); Blood Urine 2+ (Negative); Charge for UA Resulting for Rev; Glucose Urine UA Norm (Normal); Ketones Urine Negative (Negative); Leukocyte Esterase Urine Trace (Negative); Nitrate Urine Negative (Negative); Protein Urine Neg (Negative); Specific Gravity, Urine 1.015 (1.005-1.030); Urobilinogen Urine Norm (Negative)
[2024-05-27 09:16] LABS: Bacteria Urine 3+ /hpf; RBC Urine 0-2 /hpf (0-2); WBC Urine 0-5 /hpf (0-5)
[2024-05-27 11:20] LABS: Add Urine Culture? Yes
== END 2024-05-27 12:55 | disposition home or self-care (01) ==
LOC: OPOB 04:18 → OBGYN 04:21
PROVIDERS: Visit Provider Obstetrics & Gynecology
DX: O26.899 Other specified pregnancy related conditions, unspecified trimester (principal); Z3A.00 Weeks of gestation of pregnancy not specified; R10.9 Unspecified abdominal pain
CPT/HCPCS: 36415; 59025; 80053; 81003; 82570; 84156; 84550; 85025; 87086; 99211

== ENCOUNTER → 2024-06-07 10:22 | Outpatient (BNVA) | payer MEDICAID, SELFPAY | PROVIDERS: Visit Provider Obstetrics & Gynecology | DX: Z36.9 Encounter for antenatal screening, unspecified (principal) | CPT/HCPCS: 76815; 76819 ==

== ENCOUNTER 2024-06-08 05:31 | Inpatient (IN) | payer MEDICAID, SELFPAY ==
--- NOTE | 2024-06-02 10:09 | P.ANESASSM_ITS ---
Pre-Anesthetic Assessment Height/Weight: Height 5 ft 3 in Preop Diagnosis: Planned Operation Date: 06/08/24 07:00 Proposed Procedures p Section Repeat With bilateral Tubal(Not Applicable) - Jose Adame MD Was Beta Melania taken within 24 hours: N/A Was Clonidine taken within 24 hours: N/A Social No alcohol and No tobacco Exam alert, oriented x 3, clear to auscultation bilaterally and regular rate & rhythm Airway Submandibular: within normal limits Cervical ROM: within normal limits Mallampati: Class III Dentition: full Anesthetic Plan ASA status: 2 Anesthesia: Regional (specify below) Other: G4, P2 scheduled for planned Denies any issues during Plan to be n.p.o. night before procedure Patient only takes vitamin Denies any cardiac or pulm issues Will obtain labs morning of procedure Plan for spinal anesthetic Medications/Allergies Home Medications Medication Instructions Recorded Confirmed Last Taken Type prenat.vits,robert,esl-kkyj-rbpqc 1 tab PO DAILY 06/22/20 06/02/24 1 Day Ago History ~05/26/24 Allergies Allergy/AdvReac Type Severity Reaction Status Date / Time No Known Allergies Allergy Verified 06/02/24 07:54 [facility] Anesthesia Medical History Asthma has not had an attack since high school No pertinent past medical history neghx: htn,dm,thyroid,dvt/pe,herpes PCP: none Surgical History Status post delivery 12/25/2020----> primary low transverse delivery for arrest of dilation performed by Dr. Chavira at [facility] – [place], [place]. Low transverse uterine incision with double layer closure-bilateral right and left inferior extensions measuring about 1 cm. Prominent sacral premonitory. Family History Mother Heart disease has pace maker Sister Hypertension Denies family history of Colon cancer Ovarian cancer Diabetes Hyperlipidemia Breast cancer Uterine cancer Thyroid disease Stroke Social History Smoking and tobacco/nicotine status: never used tobacco/nicotine Data Anesthesia Cardiac Studies: No Data to Display
[2024-06-08] VITALS (28 sets, daily range): BP systolic 109–139; BP diastolic 55–78; PULSE 57–73; RESP 16–18; TEMP 35.7–37; O2SAT 94–96; BMI 44.9
[2024-06-08] MEDS: lactated ringers 1,000 ML 999 ML IV (06:19)
[2024-06-08 06:34] LABS: Basophils % 0.3 %; Eosinophils # 0.1 10^3/uL (0.0-0.8); Eosinophils % 1.1 %; Hematocrit 36.5 % (36-47); Lymphocytes # 1.4 10^3/uL (0.8-4.8); Lymphocytes % 18.4 %; Mean Corpuscular HGB Conc 32.9 g/dL (30-55); Mean Corpuscular Hemoglobin 30.3 pg (27-33); Mean Corpuscular Volume 92.2 fl (85-98); Mean Platelet Volume 10.1 fL (7.4-10.4); Monocytes # 0.5 10^3/uL (0.2-0.9); Monocytes % 6.7 %; Neutrophils % 72.3 %; Nucleated Red Blood Cells % 0 %; Platelet Count 251 10^3/cmm (157-399); Red Blood Count 3.96 10^6/uL (3.85-5.65); Red Cell Distribution Width 13.1 % (12.1-15.1)
--- NOTE | 2024-06-08 06:57 | W.PM.OPSUD ---
Surgery/Procedure H&P Update DATE OF PROCEDURE: June 08, 2024 DATE H&P PERFORMED: 06/02/24 H&P UPDATE INFORMATION: I have reviewed H&P completed within last 30 days, I have examined patient prior to procedure and No changes to prior documentation PREOP DIAGNOSIS: Planned PLANNED PROCEDURE: Operation Date: 06/08/24 07:00 Proposed Procedures p Section Repeat With bilateral Tubal(Not Applicable) - Jose Adame MD
--- NOTE | 2024-06-08 07:01 | P.ANESUD_ITS ---
Pre-Anesthetic Update Pre-Anesthetic Assessment: Date of Surgery/Procedure: 06/08/24 Preop My gnosis: Planned Proposed Procedure: Operation Date: 06/08/24 07:00 Proposed Procedures p Section Repeat With bilateral Tubal(Not Applicable) - Jose Adame MD Any changes to Pre-Anesthetic Assessment?: No Changes from Pre-Anes thetic Assessment: none Last Intake: 22:30 Labs Last 48hrs: Short CBC 06/08/24 Range/Units 06:00 WBC 7.60 (3.29-11.43) 10^ 3/uL Hgb 12.00 (11.27-16.99) g/ dL Hct 36.5 (36-47) % MCV 92.2 (85-98) fl Plt Count 251 (157-399) 10^3/c mm Neut % (Auto) 72.3 % Neut # (Auto) 5.50 (1.8-7.7) 10^3/u L Vitals: Pulse Rate 62 06/08/24 05:55 Respiratory Effort Spontaneous, Non- Labored 06/08/24 05:57 Respiratory Depth Normal 06/08/24 05:57 Respiratory Patter n Normal 06/08/24 05:57 Blood Pressure 124/71 06/08/24 05:55 Oxygen Delivery Me thod Room Air 06/08/24 05:57 Exam: Pre-Anes Outpt Exam: alert and oriented x 3 Cardiac Studies: No Data to Display
[2024-06-08] MEDS: metoclopramide 5 mg/mL SDV 2 mL 10 MG IVP (07:08)
[2024-06-08] MEDS: citric acid-sodium citrate 30 mL UDC PO (07:08)
[2024-06-08] MEDS: famotidine 20 mg/2 mL INJ IVP (07:10)
[2024-06-08] MEDS: BUPIVACAINE LIPOSOME/PF 266 MG, BUPivacaine 0.25% 30 ML in sodium chloride 0.9% 50 ML 100 MG INFILTRATI (08:35)
--- NOTE | 2024-06-08 09:39 | PM.OP ---
Operative Report Date of procedure: June 08, 2024 Pre-op diagnosis: Term Previous delivery Desire permanent sterilization Post-op diagnosis: same Procedure done: Repeat low-transverse delivery Bilateral salpingectomy Specimens removed/disposition: Left the right fallopian tube Surgeon: Jose Adame MD Estimated blood loss (mL): 800 IV fluids (mL): 1,900 Urine output (mL): 150 Complications: none Procedure: After assuring informed consent, the patient was taken to the operating room and anesthesia was initiated. She was placed in the dorsal supine position with a left lateral tilt. The abdomen was prepped and draped in the usual sterile manner. A time-out procedure was performed. Preop antibiotics was administered. A Pfannenstiel skin incision was made with the scalpel and carried through to the underlying layer of fascia with the Bovie. The fascia was nicked in the midline and the incision extended laterally with the Pelayo scissors. The superior aspect of the fascial incision was then grasped with Maynor clamps and elevated and the underlying rectus muscle dissected off bluntly and sharp with pelayo scissors dense adhesions. Attention was then turned to the inferior aspect of the incision which, in similar fashion, was grasped and tented up with Maynor clamps and the rectus muscle dissected bluntly. The rectus muscles were then in the midline and the peritoneum identified, tented up and entered sharply with Metzenbaum scissors. The peritoneal incision was then extended superiorly and inferiorly with good visualization of the bladder. The Juan O retractor was then inserted and the vesicouterine peritoneum identified, grasped with pickups and entered sharply with Metzenbaum scissors. This incision was then extended laterally and the bladder flap created digitally. The uterus incised in a low transverse fashion with the scalpel. The uterine incision was then extended with the bandage scissors. The infant was then delivered in the cephalic presentation atraumatically vacuum assist. The nose and the mouth were suctioned with bulb and the cord clamped and cut. The cord was normal and had three vessels. Amniotic fluid was clear. She delivered a male infant weight 8 pounds 8 ounces Apgars 9/9. The placenta was then removed manually and the uterus exteriorized and cleared of all clots and debris. The uterine incision was repaired with 0 Vicryl in a running-locked fashion. A second layer of the same suture was used to obtain excellent hemostasis. The gutters were cleared of all clots. The left fallopian tube was identified and grasped with a Elizabeth clamp. The tube was then followed out to the fimbria. An avascular midsection of the fallopian tube was grasped with a Meenakshi clamps. With this LigaSure device the tube was clamped, sealed cut and excised. The specimen was sent to pathology. Excellent hemostasis was noted. The same procedure was performed on the opposite fallopian tube. The uterus was then returned to the abdomen. The rectus muscles were approximated with 3-0 chromic gut. The fascia was reapproximated with 0 Vicryl in an interrupted running fashion. The adipose layer was approximated with 0 Vicryl and infiltrated with Exparel for pain management. The skin was closed with Insorb?s subcuticular absorbable kimo. The patient tolerated the procedure well. The sponge, lap and needle counts were correct times three.
--- NOTE | 2024-06-08 10:00 | ANE.PACU2 ---
Inpatient post-anesthesia follow up: Airway intact: Yes Vital signs: Temperature 97.2 F Pulse Rate 67 Respiratory Rate Blood Pressure 123/60 Pulse Oximetry Oxygen Delivery Me thod Room Air Oxygen Flow Rate Fraction of Inspir ed Oxygen Hydration adequate: Yes Nausea and vomiting: No Pain level: 1 Mental status: Baseline
[2024-06-08] MEDS: dextrose 5%-lactated ringers 1,000 ML 125 ML IV (10:55)
[2024-06-08] MEDS: HYDROcodone-acetaminophen 5-325 mg Tablet PO ×2 (11:39→19:02)
--- NOTE | 2024-06-08 14:39 | PC.NURSE ---
Assisted pt to chair. Pt tolerated well.
[2024-06-08] MEDS: ketorolac 30 mg/mL INJ IVP ×2 (15:42→22:08)
[2024-06-08] MEDS: docusate sodium 100 mg Capsule PO (18:32)
[2024-06-08 21:58] LABS: Hematocrit 34.9 % (36-47); Mean Corpuscular Hemoglobin 30.2 pg (27-33); Mean Corpuscular Volume 91.6 fl (85-98); Mean Platelet Volume 9.8 fL (7.4-10.4); Platelet Count 204 10^3/cmm (157-399); Red Blood Count 3.81 10^6/uL (3.85-5.65); Red Cell Distribution Width 13.1 % (12.1-15.1); White Blood Count 10.99 10^3/uL (3.29-11.43)
--- NOTE | 2024-06-08 22:57 | PC.NURSE ---
Gentile removed on 06/08/24 @ 2051. 350mls of pale yellow urine. Intact after removal, pt tolerated well.
[2024-06-09] MEDS: HYDROcodone-acetaminophen 5-325 mg Tablet PO ×4 (02:24→19:15)
[2024-06-09 05:14] VITALS: BP 136/77; PULSE 65; RESP 16
[2024-06-09] MEDS: ketorolac 30 mg/mL INJ IVP (05:17)
--- NOTE | 2024-06-09 08:47 | P.PN_ITS ---
Subjective 2 Subjective: This is not a 33-year-old female status post repeat low-transverse and bilateral salpingectomy postoperative day 1. Refers feeling fine Vitals/I&O/Wt Last Vital Signs Temp 97.3 F L 06/08/24 20:54 Pulse 65 06/09/24 05:14 Resp 16 06/09/24 05:14 BP 136/77 06/09/24 05:14 Pulse Ox 95 06/08/24 09:20 O2 Del Method Room Air 06/08/24 05:57 06/08/24 06/09/24 06/09/24 22:59 06:59 14:59 Intake Total 1900 / 4900 Output Total 1300 / 2400 200 / 2600 Balance 600 / 2500 -200 / 2300 Weight last 48 hrs Weight 115.212 kg Weight 115.212 kg Physical Exam 2 Narrative: GA; alert and oriented x 3 HEENT: normal Breasts: engorged Nipples - skin intact Lungs; clear to auscultation Heart: regular rhythm, no murmurs. Abd: Appropriately tender. BS+. Uterine fundus below umbilicus. No Fundal Tenderness. Minimal tenderness, incision clean and dry, no redness, pain or edema Perineum: normal lochia. Extremities: no edema, no cyanosis, no tenderness. Data 06/08/24 21:52 A&P Assessment and plan (1) Previous delivery affecting : Mrs. Barney a 33-year-old female status post repeat low-transverse delivery and bilateral salpingectomy postoperative day 1. She is afebrile and hemodynamically stable. Tolerating diet well. Ambulating without difficulty Plan Continue postop observation Attestations 2 Medical Necessity Statement*: In my professional opinion per admitting the Coding Level of Care Code Acute Code for Chg Fwd Diagnoses Previous delivery affecting O34.219
[2024-06-09] MEDS: docusate sodium 100 mg Capsule PO ×2 (09:09→20:57)
[2024-06-09] MEDS: PRENATAL VIT NO.130/IRON/FOLIC 1 EACH TABLET PO (09:09)
[2024-06-09 09:11] VITALS: BP 144/74; PULSE 75
[2024-06-09] MEDS: ibuprofen 800 mg tablet PO ×2 (15:52→20:57)
[2024-06-09 20:57] VITALS: BP 134/77; PULSE 74; TEMP 35.7
[2024-06-10] MEDS: HYDROcodone-acetaminophen 5-325 mg Tablet PO ×2 (03:12→12:20)
[2024-06-10 05:39] VITALS: BP 142/83; PULSE 68
[2024-06-10] MEDS: ferrous sulfate EC 325 mg Tablet PO (09:09)
[2024-06-10] MEDS: ibuprofen 800 mg tablet PO (09:10)
[2024-06-10] MEDS: PRENATAL VIT NO.130/IRON/FOLIC 1 EACH TABLET PO (09:10)
[2024-06-10] MEDS: docusate sodium 100 mg Capsule PO (09:10)
--- NOTE | 2024-06-10 12:35 | PM.OBGYDC ---
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 Pritchard is a 33-year-old female G4, P2 admitted with term for repeat low-transverse delivery and permanent sterilization. The procedures were performed without complication. Postop observation was uneventful. She is afebrile and hemodynamically stable postoperative day 2. Tolerating diet well. Ambulating without difficulty. Pain under control. She was counseled regarding pelvic rest for 6 weeks (no sex, no tampons, no vaginal douches). Return to the emergency room if any fever, increased bleeding or pain. Information Peripartum Data: Infant Delivery Method: Physical Exam Narrative: GA; alert and oriented x 3 HEENT: normal Breasts: engorged Nipples - skin intact Lungs; clear to auscultation Heart: regular rhythm, no murmurs. Abd: Appropriately tender. BS+. Uterine fundus below umbilicus. No Fundal Tenderness. Minimal tenderness, incision clean and dry, no redness, pain or edema Perineum: normal lochia. Extremities: no edema, no cyanosis, no tenderness. History History History 4 Term 1 0 Miscarriages/Ectopic 2 Living Children 1 Discharge Data Studies Completed and Pending Pending at discharge Category Date Time Status Pathology: Surgical [PTH] Routine Pth 06/08/24 10:39 Received Laboratory Results WBC 10.99 10^3/uL (3.29-11.43) 06/08/24 21:52 RBC 3.81 10^6/uL (3.85-5.65) L 06/08/24 21:52 Hgb 11.50 g/dL (11.27-16.99) 06/08/24 21:52 Hct 34.9 % (36-47) L 06/08/24 21:52 MCV 91.6 fl (85-98) 06/08/24 21:52 MCH 30.2 pg (27-33) 06/08/24 21:52 MCHC 33.0 g/dL (30-55) 06/08/24 21:52 RDW 13.1 % (12.1-15.1) 06/08/24 21:52 Plt Count 204 10^3/cmm (157-399) 06/08/24 21:52 MPV 9.8 fL (7.4-10.4) 06/08/24 21:52 Neut % (Auto) 72.3 % 06/08/24 06:00 Lymph % (Auto) 18.4 % 06/08/24 06:00 [place] % (Auto) 6.7 % 06/08/24 06:00 Eos % (Auto) 1.1 % 06/08/24 06:00 Baso % (Auto) 0.3 % 06/08/24 06:00 Neut # (Auto) 5.50 10^3/uL (1.8-7.7) 06/08/24 06:00 Lymph # (Auto) 1.4 10^3/uL (0.8-4.8) 06/08/24 06:00 [place] # (Auto) 0.5 10^3/uL (0.2-0.9) 06/08/24 06:00 Eos # (Auto) 0.1 10^3/uL (0.0-0.8) 06/08/24 06:00 Baso # (Auto) 0.0 10^3/uL (0.0-0.1) 06/08/24 06:00 Nucleated RBC % (auto) 0 % 06/08/24 06:00 Nucleated RBCs # 0.0 /100WBC 06/08/24 06:00 Blood Type A Positive 06/08/24 06:00 Rho(D) Type Rh positive 06/08/24 06:00 Antibody Screen Negative 06/08/24 06:00 Vitals Last Vital Signs Temp 96.3 F L 06/09/24 20:57 Pulse 68 06/10/24 05:39 Resp 16 06/09/24 05:14 BP 142/83 06/10/24 05:39 Pulse Ox 95 06/08/24 09:20 O2 Del Method Room Air 06/08/24 05:57 Results Labs OB ([facility]): Obstetrics US/Biophysical Profile 06/07/24 Blood Type A Positive 06/08/24 Antibody Screen Negative 06/08/24 Hct 34.9 % (36-47) L 06/08/24 Hgb 11.50 g/dL (11.27-16.99) 06/08/24 Rho(D) Type Rh positive 06/08/24 Plt Count 204 10^3/cmm (157-399) 06/08/24 Hep Bs Antigen Non-reactive (Nonreactive) 12/01/23 Hepatitis C Antibody Non-reactive (Nonreactive) 12/01/23 Rubella IgG Antibody 17.5 IU/mL (0.0-10.0) H 12/01/23 RPR Nonreactive (Nonreactive) 12/01/23 HIV 1&2 Ab & HIV 1 Ag Non-reactive (Non-Reactiv) 12/01/23 TSH 0.91 uIU/mL (0.27-4.20) 02/25/24 Gest Glucose Tolerance 120 mg/dL (70-139) 02/25/24 Hemoglobin A1c 4.6 % (4.0-6.0) 12/01/23 Uric Acid 4.5 mg/dL (2.4-5.7) 05/27/24 Ser , Semi-Qnt 1.00 mIU/mL 08/21/23 HCG, Qual Positive (Negative) H 06/25/23 Urine Opiates Screen Negative ng/mL (Negative) 11/19/23 Ur Barbiturates Screen Negative ng/mL (Negative) 11/19/23 Ur Phencyclidine Scrn Negative ng/mL (Negative) 11/19/23 Ur Amphetamines Screen Negative ng/mL (Negative) 11/19/23 U Benzodiazepines Scrn Negative ng/mL (Negative) 11/19/23 Urine Cocaine Screen Negative ng/mL (Negative) 11/19/23 U Marijuana (THC) Screen Negative ng/mL (Negative) 11/19/23 Micro Urine Specimen 05/27/24 Discharge Plan Discharge Patient Disposition: Home Condition: Stable Prescriptions: New hydrocodone-acetaminophen 5-325 mg tablet 1 tab PO Q4H PRN (Reason: pain) Qty: 30 0RF acetaminophen 325 mg capsule 325 mg PO Q4H PRN (Reason: fever or pain) Qty: 60 0RF ibuprofen 800 mg tablet 800 mg PO TID PRN (Reason: pain) Qty: 60 0RF Continued prenat.vits,robert,vme-tdpr-uhphc Tablet 1 tab PO DAILY Discharge Orders: Discharge Order (Routine); Ordered 06/10/24 Ordered By: Jose Adame Referrals: Jose Adame MD [Physician] - 06/27/24 12:45 pm ( Your [address] Adame is on 06/27/24 at 12:45pm Your [address] Adame is on 07/28/23 at 2:15pm ) Discharge Diet: Usual diet Discharge Activity: Limit activity as instructed Patient Instructions: Depression (DC), Bleeding (GEN), Preeclampsia and Eclampsia After Delivery (GEN), OB WHC, OB Food/Drug Interaction Guide, OB Care at Home, Opioid Safety, OB Proud Parent Packet, Abnormal Bleeding Activity Restrictions/Additional Instructions: 1. Please call [facility] on next working day to make your post-operative appointment in 2 weeks. 2. Please stay home until you come back to the clinic on first post-hospatilization check up. 3. Please follow instructions on your medications CAREFULLY. 4. If you have abdominal incision, do not cover it unless dressing is necessary because of drainage. OK to shower, but avoid bath. Leave steri-strips until they fall off. If they are still on one week after surgery, you may remove them. 5. If you had vaginal surgery or vaginal repair, Dr. Adame may instruct you to take SITZ bath. 6. Yellow, blood tinged odorous vaginal discharge is usually normal after hysterectomy or vaginal surgeries. 7. No SEXUAL INTERCOURSE, tampons, or douches until you are completely released from the post-operative care. 8. Avoid constipation by eating right and maybe using some Metamucil or Milk of Magnesia. 9. All prescription refills are given during the working hours. Please do no wait till it runs out. Call the clinic at [phone] before your medication runs out. The clinic will get in touch with your doctor to prescribe medications if necessary. 10. Please remain within 40 mile radius from our hospital because emergencies do happen now and then during the post-operative period. 11. If you have stairs at home, take one step at a time slowly and minimize the number of trips. It helps to stay in one floor for the next few days. No lifting except what you can lift by one hand until you are released from the post-operative care. 12. Driving is discouraged until you are well healed. It may be 3-4 weeks before you feel strong enough to drive. You should be able to turn and look through the rear window without pain and you should be able to push the brake pedal very hard without pain before you drive. No fast rules, but SAFETY should be your primary concern. DO NOT drive if you are on sedating medications such as narcotics. 13. Call the clinic (during working hours) to make urgent appointment or go to the Emergency room, if any of the following occurs: i. Vaginal bleeding becomes heavy, more than a period. ii. Incision becomes red and sore, or drains pus. iii. Your TEMPERATURE is over 100.4F or you have chill. iv. IV site becomes red and swollen (a little ``knot?? is usually OK) v. Persistent nausea and vomiting vi. Persistent constipation or diarrhea vii. Rash or allergic reaction to medications. 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
[2024-06-10 14:15] VITALS: BP 149/76; BP 185/86; PULSE 62; PULSE 70; RESP 16; TEMP 36.6; O2SAT 97
[2024-06-10 14:17] VITALS: BP 149/76; PULSE 62
== END 2024-06-10 14:30 | disposition home or self-care (01) | DRG 785 ==
PROVIDERS: Admitting Provider Obstetrics & Gynecology; Visit Provider Obstetrics & Gynecology
PROC: 10D00Z1 Extraction of Products of Conception, Low, Open Approach (ICD-10-PCS; CPT 59514; principal; 2024-06-08 06:40)
DX: O34.211 Maternal care for low transverse scar from previous cesarean delivery (principal); N85.8 Other specified noninflammatory disorders of uterus; Z3A.39 39 weeks gestation of pregnancy; Z37.0 Single live birth; Z30.2 Encounter for sterilization
CPT/HCPCS: 36415; 59025; 59409; 85025; 85027; 86850; 86900; 88302; 96374; 98960; 99211; C9290; J1885; J2274; J2405; J2765; J3010; J3490; J7030; J7120; J7121

== ENCOUNTER → 2024-08-25 11:25 | Outpatient (BNVA) | payer MEDICAID, SELFPAY | DX: J02.9 Acute pharyngitis, unspecified (principal) | CPT/HCPCS: 87880 ==